=== PATIENT | female | born 2000 | race Caucasian/White ===

== ENCOUNTER 2018-04-11 14:17 | Emergency (ER) | payer BC ==
[2018-04-11] MEDS ORDERED: Lidocaine 2% Viscous Solution 15 ML Cup PO ONE (14:50)
[2018-04-11] MEDS ORDERED: Lidocaine 2% Viscous Solution 15 ML Cup ONE (14:50)
--- NOTE | 2018-04-11 15:41 | EDM.PDOC ---
ED HPI GENERAL MEDICAL PROBLEM - General Stated Complaint: EARING STUCK IN EAR Time Seen by Provider: 04/11/18 14:17 Source of Information: Reports: Patient, Family History Limitations: Reports: No Limitations - History of Present Illness INITIAL COMMENTS - FREE TEXT/NARRATIVE: 17 y.o.w.f in prev healthy condition came to the ed after she slammed her right ear in between car doors. She had her right ear helix pierced. Pt has tenderness and a minimal bleed at the right ear helix. No other acute med. issues. BP 118/77 RR 16 Pulse ox 100% on RA Pulse 77 Temp 36.8 Onset Date: 04/11/18 Onset Time: 13:00 Duration: Minutes: Location: Reports: Face (right ear) Quality: Reports: Ache, Dull Severity: Mild Improves with: Reports: Rest Worsens with: Reports: Movement Context: Reports: Trauma Associated Symptoms: Reports: No Other Symptoms - Related Data Allergies Allergy/AdvReac Type Severity Reaction Status Date / Time No Known Allergies Allergy Verified 04/11/18 17:18 Home Meds: Home Meds . Control 1 tab PO ASDIRECTED 04/11/18 [History] Past Medical History - Past Health History Medical/Surgical History: Denies Medical/Surgical History ED ROS ENT - Review of Systems Review Of Systems: See Below Constitutional: Reports: No Symptoms HEENT: Reports: Ear Pain Respiratory: Reports: No Symptoms Cardiovascular: Reports: No Symptoms Endocrine: Reports: No Symptoms GI/Abdominal: Reports: No Symptoms : Reports: No Symptoms Musculoskeletal: Reports: No Symptoms Skin: Reports: Wound (ight ear helix) Neurological: Reports: No Symptoms Psychiatric: Reports: No Symptoms Hematologic/Lymphatic: Reports: No Symptoms Immunologic: Reports: No Symptoms ED EXAM, ENT - Physical Exam Exam: See Below Exam Limited By: No Limitations General Appearance: Alert, WD/WN, Mild Distress, Thin Eye Exam: Bilateral Eye: Normal Inspection Ears: Normal Canal, Normal TMs, Auricular Tenderness, Other (FB right ar helix) Nose: Normal Inspection, Normal Mucousa, No Blood Mouth/Throat: Normal Inspection, Normal Gums, Normal Lips, Normal Oropharynx, Normal Teeth Head: Atraumatic, Normocephalic Neck: Normal Inspection, Supple, Non-Tender, Full Range of Motion Respiratory/Chest: No Respiratory Distress, Lungs Clear, Normal Breath Sounds, No Accessory Muscle Use, Chest Non-Tender Cardiovascular: Normal Peripheral Pulses, Regular Rate, Rhythm, No Edema, No Gallop, No JVD, No Murmur, No Rub GI/Abdominal: Normal Bowel Sounds, Soft, Non-Tender, No Organomegaly, No Mass, Pelvis Stable (Female) Exam: Deferred Rectal (Female) Exam: Deferred Back: Normal Inspection Extremities: Normal Inspection, Normal Range of Motion, Non-Tender, No Pedal Edema Neurological: Alert, Oriented, CN II-XII Intact, Normal Cognition, Normal Gait Psychiatric: Normal Affect, Normal Mood Skin: Warm, Dry, Wound/Incision (FB right ear helix) Lymphatic: No Adenopathy ED ENT PROCEDURES - Foreign Body Removal Consent Obtained: Patient Performing Doctor:: Chris Davis Foreign [facility] Other Location Comment:: right ear helix Anesthesia Type: Local (Lidocain ointment) Findings: Earring was removed without complication, wound was cleaned and triple Abx ointment was applied. Complications: No Course - Vital Signs Text/Narrative:: 17 y.o.w.f in prev healthy condition came to the ed after she slammed her right ear in between car doors. She had her right ear helix pierced. Pt has tenderness and a minimal bleed at the right ear helix. No other acute med. issues. BP 118/77 RR 16 Pulse ox 100% on RA Pulse 77 Temp 36.8 PE: Thian, wnwd w f with a FB in her righ ear helix. TD UTD (given <7 years ago) Procedure: Please see note above. Impression: Earring right ear removed Tx: Wound care Reexam: No bleed Plan: D/C with instructions Last Recorded V/S: Last Vital Signs Temp 36.4 C 04/11/18 14:30 Pulse 82 04/11/18 14:30 Resp 16 04/11/18 14:30 BP 118/77 04/11/18 14:30 Pulse Ox 100 04/11/18 14:30 - Orders/Labs/Meds Meds: Medications Discontinued Medications Generic Name Dose Route Start Last Admin Trade Name Freq PRN Reason Stop Dose Admin Lidocaine HCl Confirm 04/11/18 14:50 04/11/18 17:17 Xylocaine 2% Viscous Administered 04/11/18 14:51 Not Given Dose 15 ml .ROUTE .STK-MED ONE Lidocaine HCl 15 ml 04/11/18 14:50 04/11/18 14:50 Xylocaine 2% Viscous PO 04/11/18 14:51 15 ml ONETIME ONE Administration Departure - Departure Time of Disposition: 15:37 Disposition: Home, Self-Care 01 Condition: Good Clinical Impression: Foreign body (FB) in soft tissue - Discharge Information Referrals: PCP,None [Primary Care Provider] - Forms: ED Department Discharge Additional Instructions: Please keep wound dry and clean, apply neosporine to the affected area twice daily, please f/u with your PMD before you put anything in your ear again. Please come back if your symptoms get worse acutely
== END 2018-04-11 15:56 | disposition home or self-care (01) ==
LOC: FB.ED 14:17
DX: T16.1XXA Foreign body in right ear, initial encounter (principal); W45.8XXA Other foreign body or object entering through skin, initial encounter
CPT/HCPCS: 99282; A9270